=== PATIENT | male | born 1995 | race Caucasian/White ===

== ENCOUNTER 2016-05-08 13:09 | Emergency (ER) | payer BC ==
[~2016-05-08] VITALS: Ht 185.4 cm; Wt 82.0 kg
[2016-05-08 13:16] VITALS: TEMP 36.8; Ht 185.4 cm; Wt 82.0 kg
[2016-05-08] MEDS ORDERED: SODIUM CHLORIDE 0.9% 500ML 500 ML IV STA (14:36)
[2016-05-08] MEDS ORDERED: GLUCAGON FOR INJ 1 MG VIAL IV STA (14:36)
[2016-05-08] MEDS ORDERED: NITROGLYCERIN 0.4 MG SL PER TAB CHARGE SL STA (14:36)
[2016-05-08] MEDS ORDERED: LORAZEPAM 2 MG/ML 1 ML VIAL IV STA (14:36)
--- NOTE | 2016-05-08 15:02 | DIAGNOSTIC IMAGING REPORT ---
CHEST ONE VIEW PORTABLE HISTORY: food bolus, esophagus COMPARISON: None. FINDINGS: The lungs are clear. Cardiac silhouette is normal in size. No pleural effusions. No pneumothorax. No radiopaque foreign bodies. IMPRESSION: No acute process. Electronically signed by: Emiliano Forbes M.D. 05/08/2016 3:01 PM Dictated Date/Time: 05/08/2016 3:00 PM
[2016-05-08] MEDS ORDERED: SUCRALFATE 1 GM/10 ML UDC PO STA (15:38)
[2016-05-08 15:41] VITALS: BP 138/82; PULSE 56; O2SAT 98
[2016-05-08] MEDS ORDERED: CRFL PO (15:42)
[2016-05-08] MEDS ORDERED: PRLSR20 PO (15:42)
--- NOTE | 2016-05-08 17:31 | EMERGENCY ROOM VISIT NOTE ---
History Report prepared by Olayinkaibshari: Dandy Bullock Under the Supervision of: Dr. Bert Samson M.D. First contact with patient: 14:26 Chief Complaint: OTHER COMPLAINT Stated Complaint: DIFFICULTY SWALLOWING History of Present Illness The patient is a 20 year old male who presents to the Emergency Room with complaints of persistent difficulty swallowing since last night. The patient was eating pasta with shrimp and broccoli last night. He swallowed more than he wanted to and also did not chew the food enough. Since then, he has not been able to swallow food whatsoever. He was not able to swallow a cracker a few hours SEED BUYER. He is able to drink water very slowly. The patient did not choke on his food. There was no trauma involved, and he did not swallow anything abnormal. He feels like there is a lump in his throat with some pain rated 4/10 in severity. The patient does not have a history of blockage or esophageal issues. He does not have a history of acid reflux. The patient denies any chronic health problems and is not on any medications. Source of History: patient Onset: last night Position: throat Symptom Intensity: 4/10 Quality: other (trouble swallowing) Timing: other (persistent) Review of Systems See HPI for pertinent positives & negatives. A total of 10 systems reviewed and were otherwise negative. Past Medical & Surgical Medical Problems: (1) No known health problems Family History No pertinent family history Social History Smoking Status: Never Smoker Occupation Status: [employer] student Current/Historical Medications Scheduled Omeprazole (Prilosec), 20 MG PO DAILY Sucralfate (Carafate), 10 ML PO TID Allergies Coded Allergies: No Known Allergies (Unverified , 05/08/16) Physical Exam Vital Signs Date Time Temp Pulse Resp B/P Pulse Ox O2 Delivery O2 Flow Rate FiO2 05/08/16 15:41 56 20 138/82 98 Room Air 05/08/16 15:13 83 05/08/16 14:27 51 16 138/77 100 Room Air 05/08/16 13:16 36.8 55 18 142/70 95 Room Air Physical Exam GENERAL: Patient is in no acute distress. HEENT: No acute trauma, normocephalic atraumatic, mucous membranes moist, no nasal congestion, no scleral icterus, no throat erythema or exudate. NECK: No stridor, no adenopathy, no meningismus, trachea is midline. LUNGS: Clear to auscultation bilaterally, no wheeze, no rhonchi, breath sounds equal. HEART: Without murmurs gallops or rubs, regular rate and rhythm. ABDOMEN: Soft, nontender, bowel sounds positive, no hernias, no peritonitis. EXTREMITIES: No cyanosis or edema, full range of motion of all the joints without pain or difficulty, no signs for acute trauma. NEUROLOGIC: Oriented x 3, no acute motor or sensory deficits, no focal weakness. SKIN: No rash, no jaundice, no diaphoresis. Medical Decision & Procedures ER Provider Diagnostic Interpretation: X-ray results as stated below per interpretation by me and the radiologist: CHEST ONE VIEW PORTABLE HISTORY: food bolus, esophagus COMPARISON: None. FINDINGS: The lungs are clear. Cardiac silhouette is normal in size. No pleural effusions. No pneumothorax. No radiopaque foreign bodies. IMPRESSION: No acute process. Electronically signed by: Emiliano Forbes M.D. 05/08/2016 3:01 PM Dictated Date/Time: 05/08/2016 3:00 PM Medications Administered Medications (Trade) Dose Ordered Sig/Stan Route Start Time Stop Time Status Last Admin Dose Admin Glucagon 2 mg 2 mg NOW STAT IV 05/08/16 14:36 05/08/16 14:40 DC 05/08/16 15:00 2 MG Sodium Chloride (Nss 500ml) 500 ml @ 999 mls/hr Q31M STAT IV 05/08/16 14:36 05/08/16 15:06 DC 05/08/16 14:36 999 MLS/HR Lorazepam (Ativan Inj) 1 mg NOW STAT IV 05/08/16 14:36 05/08/16 14:40 DC 05/08/16 15:00 1 MG Nitroglycerin (Nitrostat Tab) 0.4 mg 1436 STAT SL 05/08/16 14:36 05/08/16 14:40 DC 05/08/16 14:36 0.4 MG Sucralfate (Carafate Susp) 1 gm NOW STAT PO 05/08/16 15:38 05/08/16 15:39 DC 05/08/16 15:57 1 GM ED Course 1431: The patient was evaluated in room A3. A complete history and physical exam was performed. 1436: Nitrostat 0.4 mg SL, Ativan 1 mg Iv, NSS 500 ml @ 999 mls/hr, Glucagon 2 mg IV. 1535: The patient is feeling a lot better. He was able to swallow water and a cracker. The patient is ready for discharge. 1538: Sucralfate 1 gm PO. Medical Decision Differential diagnosis includes esophageal irritation, esophageal tear, esophageal foreign body, esophageal stricture, food bolus. The patient presents with an esophageal foreign body sensation and is having difficulty with solid food and some difficulty with liquids. Chest x-ray was done, there is no mediastinal widening, no pneumonia or pneumothorax, no mediastinal air. The patient received IV saline, IV glucagon, IV Ativan and sublingual nitroglycerin. After about 30 minutes he felt improved and was able to drink water and eat a cracker without difficulty. The patient was given a drink of oral Carafate. He is being discharged. He may have had something partially obstructing his esophagus, he feels better now since treatment, I do think he can be discharged home. He will be using Prilosec and Carafate. He can return to this ER for persistent difficulty swallowing. A GI follow-up was suggested. Impression Primary Impression: Difficulty swallowing Scribe Attestation The scribe's documentation has been prepared under my direction and personally reviewed by me in its entirety. I confirm that the note above accurately reflects all work, treatment, procedures, and medical decision making performed by me. Departure Information Dispostion Home / Self-Care Prescriptions Omeprazole (PRILOSEC) 20 Mg Capcr 20 MG PO DAILY, #30 CAP Prov: Bert Samson M.D. 05/08/16 Sucralfate (CARAFATE) 1 Gm/10 Ml Lynette 10 ML PO TID for 7 Days, #210 ML 1 Refill Prov: Bert Samson M.D. 05/08/16 Referrals No Doctor, Assigned (PCP) Forms HOME CARE DOCUMENTATION FORM, IMPORTANT VISIT INFORMATION, WORK / SCHOOL INSTRUCTIONS Patient Instructions My [facility] Additional Instructions carafate 3x per day for 1 week prilosec daily for 1 month lots of liquid with meals and soft foods for next few days smaller swallows of food for a few days talk with [facility] for a GI referral as discussed return if worsening
== END 2016-05-08 15:52 | disposition home or self-care (01) ==
LOC: C.EDB 13:12 → C.EDA 15:52
DX: R13.10 Dysphagia, unspecified (principal)

== ENCOUNTER 2016-05-09 14:06 | Emergency (ER) | payer BC ==
[~2016-05-09] VITALS: Ht 185.4 cm; Wt 81.2 kg
[~2016-05-09 14:06] MED LIST: CRFL PO; PRLSR20 PO
[2016-05-09 14:22] VITALS: Ht 185.4 cm; Wt 81.2 kg
[2016-05-09] MEDS ORDERED: SODIUM CHLORIDE 0.9% 1000ML 1,000 ML IV STA (15:20)
--- NOTE | 2016-05-09 15:27 | EMERGENCY ROOM VISIT NOTE ---
History Report prepared by Olayinkaibshari: Dandy Bullock Under the Supervision of: Dr. Rick Gomez D.O. First contact with patient: 15:05 Chief Complaint: FOOD BOLUS Stated Complaint: DIFFICULTY SWALLOWING,CANT SWALLOW MEDS/FOOD/WATER Nursing Triage Summary: pt states this am could not swallow meds History of Present Illness The patient is a 20 year old male who presents to the Emergency Room with complaints of persistent difficult swallowing for the past two days. The patient was eating pasta with shrimp and broccoli two nights ago. He swallowed more than he wanted to without completely chewing his food, causing the difficulty swallowing. The patient was in the ED yesterday and given some IV medications, which did help. He was able to drink coffee this morning, but afterwards became unable to swallow oatmeal. The patient must drink water very slowly or else it comes back up. The patient also complains of abdominal pain. The patient has had trouble swallowing before, and states that this usually happens to him several times a year. The patient denies any medical problems. Source of History: patient Onset: two days Position: throat Quality: other (difficulty swallowing) Timing: other (persistent) Associated Symptoms: + abdominal pain Review of Systems See HPI for pertinent positives & negatives. A total of 10 systems reviewed and were otherwise negative. Past Medical & Surgical Medical Problems: (1) No known health problems Family History No pertinent family history Social History Smoking Status: Never Smoker Occupation Status: [employer] student Current/Historical Medications Scheduled Sucralfate (Carafate), 10 ML PO TID Allergies Coded Allergies: No Known Allergies (Unverified , 05/09/16) Physical Exam Vital Signs Date Time Temp Pulse Resp B/P Pulse Ox O2 Delivery O2 Flow Rate FiO2 05/09/16 19:19 55 20 125/75 100 Room Air 05/09/16 19:00 65 20 144/77 100 Room Air 05/09/16 18:45 66 20 130/75 100 Room Air 05/09/16 18:29 36.8 59 20 127/74 100 Room Air 05/09/16 18:25 36.8 55 20 135/79 98 Room Air 05/09/16 18:15 78 20 136/78 99 Room Air 05/09/16 18:05 75 20 129/65 100 Room Air 05/09/16 17:55 73 20 135/69 100 Mask 10 05/09/16 17:45 36.8 84 20 140/70 100 Mask 10 05/09/16 16:10 58 17 133/70 98 Room Air 05/09/16 15:04 100 05/09/16 14:22 36.7 96 18 147/83 96 Room Air Physical Exam GENERAL: Patient is awake, alert, and in no acute distress. Patient is resting comfortably and showing no signs of anxiety EYES: The conjunctivae are clear. The pupils are round and reactive. EARS, NOSE, MOUTH AND THROAT: The nose is without any evidence of any deformity. Mucous membranes are moist tongue is midline NECK: The neck is nontender and supple. RESPIRATORY: Normal respiratory effort is noted there is no evidence of wheezing rhonchi or rales CARDIOVASCULAR: Regular rate and rhythm noted there no murmurs rubs or gallops normal S1 normal S2 GASTROINTESTINAL: The abdomen is soft. Bowel sounds are present in all quadrants. Abdomen is nontender MUSCULOSKELETAL/EXTREMITIES: There is no evidence of gross deformity full range of motion is noted in the hips and shoulders SKIN: There is no obvious evidence of any rash. There are no petechiae, pallor or cyanosis noted. NEUROLOGIC: Patient is awake alert and oriented x3 strength is symmetric patellar reflexes are 2+ bilaterally Medical Decision & Procedures ER Provider Diagnostic Interpretation: X-ray results as stated below per interpretation by me and the radiologist. CHEST ONE VIEW PORTABLE CLINICAL HISTORY: ABDOMINAL PAIN/GI nausea COMPARISON STUDY: 05/08/2016 FINDINGS: The bones soft tissues and hemidiaphragms are normal. The cardiomediastinal silhouette is normal. The lungs are clear. The pulmonary vasculature is normal. IMPRESSION: Negative chest. No change in the prior study. Electronically signed by: Jimmy Kelley M.D. 05/09/2016 3:42 PM Dictated Date/Time: 05/09/2016 3:41 PM Laboratory Results 05/09/16 15:35 Red Blood Count 5.20, Mean Corpuscular Volume 88.8, Mean Corpuscular Hemoglobin 31.5, Mean Corpuscular Hemoglobin Concent 35.5, Mean Platelet Volume 10.4, Neutrophils (%) (Auto) 62.0, Lymphocytes (%) (Auto) 26.3, Monocytes (%) (Auto) 7.4, Eosinophils (%) (Auto) 3.4, Basophils (%) (Auto) 0.7, Neutrophils # (Auto) 3.52, Lymphocytes # (Auto) 1.49, Monocytes # (Auto) 0.42, Eosinophils # (Auto) 0.19, Basophils # (Auto) 0.04 05/09/16 15:35 Test 05/09/16 15:35 05/09/16 16:04 White Blood Count 5.67 K/uL (4.8-10.8) Red Blood Count 5.20 M/uL (4.7-6.1) Hemoglobin 16.4 g/dL (14.0-18.0) Hematocrit 46.2 % (42-52) Mean Corpuscular Volume 88.8 fL (80-100) Mean Corpuscular Hemoglobin 31.5 pg (25-34) Mean Corpuscular Hemoglobin Concent 35.5 g/dl (32-36) Platelet Count 232 K/uL (130-400) Mean Platelet Volume 10.4 fL (7.4-10.4) Neutrophils (%) (Auto) 62.0 % Lymphocytes (%) (Auto) 26.3 % Monocytes (%) (Auto) 7.4 % Eosinophils (%) (Auto) 3.4 % Basophils (%) (Auto) 0.7 % Neutrophils # (Auto) 3.52 K/uL (1.4-6.5) Lymphocytes # (Auto) 1.49 K/uL (1.2-3.4) Monocytes # (Auto) 0.42 K/uL (0.11-0.59) Eosinophils # (Auto) 0.19 K/uL (0-0.5) Basophils # (Auto) 0.04 K/uL (0-0.2) RDW Standard Deviation 39.7 fL (36.4-46.3) RDW Coefficient of Variation 12.4 % (11.5-14.5) Immature Granulocyte % (Auto) 0.2 % Immature Granulocyte # (Auto) 0.01 K/uL (0.00-0.02) Anion Gap 9.0 mmol/L (3-11) Est Creatinine Clear Calc Drug Dose 120.0 ml/min Estimated GFR () 110.6 Estimated GFR (Non- 95.5 BUN/Creatinine Ratio 11.9 (10-20) Calcium Level 9.5 mg/dl (8.5-10.1) Total Bilirubin 0.9 mg/dl (0.2-1) Direct Bilirubin 0.2 mg/dl (0-0.2) Aspartate Amino Transf (AST/SGOT) 19 U/L (15-37) Alanine Aminotransferase (ALT/SGPT) 33 U/L (12-78) Alkaline Phosphatase 107 U/L (45-117) Total Protein 8.2 gm/dl (6.4-8.2) Albumin 4.9 gm/dl (3.4-5.0) Lipase 73 U/L (73-393) Urine Color YELLOW Urine Appearance CLEAR (CLEAR) Urine pH 7.0 (4.5-7.5) Urine Specific [place] 1.006 (1.000-1.030) Urine Protein NEG (NEG) Urine Glucose (UA) NEG (NEG) Urine Ketones NEG (NEG) Urine Occult Blood NEG (NEG) Urine Nitrite NEG (NEG) Urine Bilirubin NEG (NEG) Urine Urobilinogen NEG (NEG) Urine Leukocyte Esterase NEG (NEG) Laboratory results per my review. Medications Administered Medications (Trade) Dose Ordered Sig/Stan Route Start Time Stop Time Status Last Admin Dose Admin Sodium Chloride (Nss 1000ml) 1,000 ml @ 999 mls/hr Q1H1M STAT IV 05/09/16 15:20 05/09/16 16:20 DC 05/09/16 16:07 999 MLS/HR ED Course 1520: The patient was evaluated in room A2. A complete history and physical examination were performed. 1520: NSS 1000 ml @ 999 mls/hr. 1546: Spoke with Dr. Sexton, Financial Planning Assistant. The patient will be evaluated. 1600: Updated the patient. He is expecting Dr. Sexton. Medical Decision Etiologies such as cardiac ischemia, aortic dissection, pulmonary embolism, pneumonia, pneumothorax, musculoskeletal, infections, pericarditis, myocarditis , esophageal rupture, gastrointestinal, as well as others were entertained. Nursing notes reviewed. Patient's previous electronic medical records reviewed. The patient is a 20-year-old male who presented to the emergency department with esophageal foreign body symptoms. The patient had a meal which included shrimp as well as broccoli 2 nights ago. He has had worsening foreign body sensation ever since that time. He was seen in our facility last evening for similar problems. At that time he was treated medically and resolution of symptoms. He returns this evening with worsening symptoms. The patient does have a history and physical exam consistent with esophageal foreign body. He was treated with IV fluids in emergency department. Discussed his case with the on-call antique clock repairer. They've agreed to evaluate the patient in the emergency department for further management and disposition. The patient was tolerating his secretions well and I feel this most likely represents a partial obstruction with a food bolus. Consults Time Called: 1539 Consulting Physician: Dr. Sexton, Financial Planning Assistant Returned Call: [phone]: Spoke with Dr. Sexton, Financial Planning Assistant. The patient will be evaluated. Impression Primary Impression: Esophageal foreign body Additional Impression: Difficulty swallowing Scribe Attestation The scribe's documentation has been prepared under my direction and personally reviewed by me in its entirety. I confirm that the note above accurately reflects all work, treatment, procedures, and medical decision making performed by me. Departure Information Dispostion Other (Being Evaluated By Gastroenterology) Referrals [facility] (PCP) Patient Instructions My [facility] Problem Qualifiers
--- NOTE | 2016-05-09 15:43 | DIAGNOSTIC IMAGING REPORT ---
CHEST ONE VIEW PORTABLE CLINICAL HISTORY: ABDOMINAL PAIN/GI nausea COMPARISON STUDY: 05/08/2016 FINDINGS: The bones soft tissues and hemidiaphragms are normal. The cardiomediastinal silhouette is normal. The lungs are clear. The pulmonary vasculature is normal. IMPRESSION: Negative chest. No change in the prior study. Electronically signed by: Jimmy Kelley M.D. 05/09/2016 3:42 PM Dictated Date/Time: 05/09/2016 3:41 PM
[2016-05-09 15:49] LABS: BASO % 0.7 %; BASO ABS # 0.04 K/uL (0-0.2); COMPLETE YES; EOS % 3.4 %; HEMATOCRIT 46.2 % (42-52); IG% 0.2 %; LYMPH % 26.3 %; LYMPH ABS # 1.49 K/uL (1.2-3.4); MEAN CELL VOLUME 88.8 fL (80-100); MEAN CORPUSCULAR HEMOGLOBIN 31.5 pg (25-34); MEAN CORPUSCULAR HGB CONC 35.5 g/dl (32-36); MEAN PLATELET VOLUME 10.4 fL (7.4-10.4); MONO % 7.4 %; PLATELET COUNT 232 K/uL (130-400); WHITE BLOOD COUNT 5.67 K/uL (4.8-10.8)
[2016-05-09 16:10] VITALS: O2SAT 98
[2016-05-09 16:17] LABS: BUN/CREATININE RATIO 11.9 (10-20); CALCIUM 9.5 mg/dl (8.5-10.1); CREATININE 1.1 mg/dl (0.60-1.40); POTASSIUM 3.8 mmol/L (3.5-5.1)
[2016-05-09 16:45] LABS: URINE APPEARANCE CLEAR (CLEAR); URINE BILIRUBIN NEG (NEG); URINE COLOR YELLOW; URINE NITRITE NEG (NEG); URINE SPECIFIC GRAVITY 1.006 (1.000-1.030); UROBILINOGEN NEG (NEG)
[2016-05-09 16:46] LABS: MANUAL MICROSCOPIC REQUIRED? NO; REVIEW REQ? NO
--- NOTE | 2016-05-09 16:53 | Medical Consult ---
Consultation Date of Consultation: May 09, 2016. Attending Physician: Dr. woo Sexton Reason for Consultation: food impaction History of Present Illness The patient is a 20 year old male presenting for a suspected food impaction. He notes during dinner yesterday some food became impacted, it appeared to pass during his ER evaluation and he was therefore discharged. This am he noted some persistent chest fullness and is unable to swallow solids, the patient is able to swallow some liquids. He has noted similar events over the past year but has not needed medical care as the boluses typically pass spontaneously. The patient does not recall a history of GERD but does note use PRN Peptobismol. Past Medical/Surgical History Medical Problems: (1) Difficulty swallowing Status: Acute Family History No pertinent family history Social History Smoking Status: Never Smoker Alcohol Use: occasionally Drug Use: none Marital Status: single Housing Status: other (College student) Occupation Status: [employer] student Allergies Coded Allergies: No Known Allergies (Unverified , 05/09/16) Home Medications Carafate 1 gm Tid Current Inpatient Medications Reported Home Medications Medications Dose Route/Sig Max Daily Dose Days Date Category Carafate (Sucralfate) 1 Gm/10 Ml Lynette 10 Ml PO TID 7 05/08/16 Rx Review of Systems Constitutional: No chills, No fatigue, No weight loss Eyes: No diplopia, No eye pain, No redness ENT: + trouble swallowing, No sore throat Respiratory: + wheezing, No shortness of breath, No sputum Cardiovascular: No PND, No chest pain, No edema, No palpitations Abdomen: No constipation, No diarrhea, No nausea, No vomiting Musculoskeletal: No joint pain, No swelling Genitourinary - Male: No dysuria, No urinary hesitancy Neurologic: No balance problems, No memory loss, No weakness Psychiatric: No depression symptoms, No substance abuse Endocrine: No fatigue Hematologic / Lymphatic: No abnormal bleeding/bruising, No swollen lymph nodes Integumentary: No rash Allergic / Immunologic: No environmental allergies, No food allergies Physical Exam Date Time Temp Pulse Resp B/P Pulse Ox O2 Delivery O2 Flow Rate FiO2 05/09/16 16:10 58 17 133/70 98 Room Air 05/09/16 15:04 100 05/09/16 14:22 36.7 96 18 147/83 96 Room Air General Appearance: no apparent distress Head: normocephalic Eyes: PERRL Neck: supple, no JVD Respiratory/Chest: chest non-tender, lungs clear Cardiovascular: regular rate, rhythm, no murmur Abdomen/GI: normal bowel sounds, non tender, soft Neurologic/Psych: alert, oriented x 3 Skin: no rash Laboratory Results Last 24 Hours Test 05/09/16 15:35 05/09/16 16:04 White Blood Count 5.67 K/uL Red Blood Count 5.20 M/uL Hemoglobin 16.4 g/dL Hematocrit 46.2 % Mean Corpuscular Volume 88.8 fL Mean Corpuscular Hemoglobin 31.5 pg Mean Corpuscular Hemoglobin Concent 35.5 g/dl Platelet Count 232 K/uL Mean Platelet Volume 10.4 fL Neutrophils (%) (Auto) 62.0 % Lymphocytes (%) (Auto) 26.3 % Monocytes (%) (Auto) 7.4 % Eosinophils (%) (Auto) 3.4 % Basophils (%) (Auto) 0.7 % Neutrophils # (Auto) 3.52 K/uL Lymphocytes # (Auto) 1.49 K/uL Monocytes # (Auto) 0.42 K/uL Eosinophils # (Auto) 0.19 K/uL Basophils # (Auto) 0.04 K/uL RDW Standard Deviation 39.7 fL RDW Coefficient of Variation 12.4 % Immature Granulocyte % (Auto) 0.2 % Immature Granulocyte # (Auto) 0.01 K/uL Sodium Level 142 mmol/L Potassium Level 3.8 mmol/L Chloride Level 105 mmol/L Carbon Dioxide Level 28 mmol/L Anion Gap 9.0 mmol/L Blood Urea Nitrogen 13 mg/dl Creatinine 1.10 mg/dl Est Creatinine Clear Calc Drug Dose 120.0 ml/min Estimated GFR () 110.6 Estimated GFR (Non- 95.5 BUN/Creatinine Ratio 11.9 Random Glucose 94 mg/dl Calcium Level 9.5 mg/dl Total Bilirubin 0.9 mg/dl Direct Bilirubin 0.2 mg/dl Aspartate Amino Transf (AST/SGOT) 19 U/L Alanine Aminotransferase (ALT/SGPT) 33 U/L Alkaline Phosphatase 107 U/L Total Protein 8.2 gm/dl Albumin 4.9 gm/dl Lipase 73 U/L Assessment & Plan Patient with a suspected food impaction. We plan for EGD today for disimpaction. We discussed the risks to include bleeding, infection, perforation, aspiration, inabilty to remove bolus and need for f/u procedures. Plan EGD today Omeprazole 40 mg per day
[2016-05-09] MEDS ORDERED: SUCCINYLCHOLINE 100MG/5ML SYR IV ONE (17:00)
[2016-05-09] MEDS ORDERED: PROPOFOL IV EMULSION 10 MG/ML 20 ML VIAL IV ONE (17:00)
[2016-05-09] MEDS ORDERED: FENTANYL CITRATE INJ 50 MCG/1 ML 2 ML VIAL ONE (17:04)
[2016-05-09] MEDS ORDERED: MIDAZOLAM HCL 1 MG/ML 2ML VIAL ONE (17:05)
[2016-05-09] MEDS ORDERED: DEXAMETHASONE SOD INJ 4 MG/ML VIAL ONE (17:30)
[2016-05-09] MEDS ORDERED: DiphenhydrAMINE HCL 50 MG/ML VIAL ONE (17:33)
--- NOTE | 2016-05-09 17:47 | GI REPORT ---
Procedure Date: 05/09/2016 5:15 PM Procedure: Upper GI endoscopy Indications: Foreign body in the esophagus Medicines: General Anesthesia Complications: No immediate complications. Estimated blood loss: Minimal. Estimated Blood Loss: Estimated blood loss was minimal. Procedure: Pre-Anesthesia Assessment: - Prior to the procedure, a History and Physical was performed, and patient medications, allergies and sensitivities were reviewed. The patient's tolerance of previous anesthesia was reviewed. - The risks and benefits of the procedure and the sedation options and risks were discussed with the patient. All questions were answered and informed consent was obtained. - Patient identification and proposed procedure were verified prior to the procedure by the physician, the nurse and the anesthesiologist. The procedure was verified in the procedure room. - Pre-procedure physical examination revealed no contraindications to sedation. - ASA Grade Assessment: I - A normal, healthy patient. - After reviewing the risks and benefits, the patient was deemed in satisfactory condition to undergo the procedure. - The anesthesia plan was to use general anesthesia. - Immediately prior to administration of medications, the patient was re-assessed for adequacy to receive sedatives. - The heart rate, respiratory rate, oxygen saturations, blood pressure, adequacy of pulmonary ventilation, and response to care were monitored throughout the procedure. - The physical status of the patient was re-assessed after the procedure. After obtaining informed consent, the endoscope was passed under direct vision. Throughout the procedure, the patient's blood pressure, pulse, and oxygen saturations were monitored continuously. The scope was introduced through the mouth, and advanced to the second part of duodenum. The upper GI endoscopy was accomplished without difficulty. The patient tolerated the procedure well. Findings: Food was found in the lower third of the esophagus. Removal of food was accomplished (combination of a [employer] and gentle pressure of the bolus allowing it to pass into the stomach). Estimated blood loss was minimal. Mucosal changes including feline appearance, longitudinal markings, mucosal friability and stenosis were found in the middle third of the esophagus and in the lower third of the esophagus. The entire examined stomach was normal. The examined duodenum was normal. Impression: - Food in the lower third of the esophagus. Removal was successful. - Esophageal mucosal changes suggestive of eosinophilic esophagitis. - Normal stomach. - Normal examined duodenum. Recommendation: - Discharge patient to home (ambulatory). - Full liquid diet for 3 days. The advance as tolerated (avoid meats / breads) - Use Prilosec (omeprazole) 40 mg PO daily. - Repeat the upper endoscopy in 2 weeks. Cally Sexton D.O. Cally Sexton, 05/09/2016 5:47:32 PM This report has been signed electronically. Note Initiated On: 05/09/2016 5:15 PM I attest to the content of the Intraoperative Record and orders documented therein, exceptions below
--- NOTE | 2016-05-09 17:48 | [facility] Post Operative Brief Note ---
Immediate Operative Summary Operative Date May 09, 2016. Pre-Operative Diagnosis food impaction Post-Operative Diagnosis food impaction suspect Eosinophilic Esophagitis Procedure(s) Performed Upper Endoscopy Surgeon Dr Alix Sexton Analytical Chemist Surgeon(s) None Estimated Blood Loss 3 Findings food impacted in esophagus findings suggestive of eosinophilic esopahgitis Specimens None Anesthesia General Complication(s) None Disposition Recovery Room / PACU
--- NOTE | 2016-05-09 17:51 | Discharge Instructions ---
Endoscopy Patient Instructions Date / Procedure(s) Performed May 09, 2016. EGD Allergy Information Coded Allergies: No Known Allergies (Unverified , 05/09/16) Discharge Date / Findings May 09, 2016. food impaction of the esophagus suspect eosinophilic esophagitis Medication Instructions Omeprazole 40 mg per day Provider Instructions Activity Restrictions - No exercising or heavy lifting for 24 hours. - Do not drink alcohol the day of the procedure. - Do not drive a car or operate machinery until the day after the procedure. - Do not make any important decisions or sign important papers in 24 hours after the procedure. Following Day: - Return to full activity which may include returning to work/school. Diet Liquid diet for 3 days Then advance as tolerated (avoid bread / meats / hard or fibrous foods) Treatment For Common After Affects For mild abdominal pain, bloating, or excessive gas: - Rest - Eat lightly - Lie on right side Follow-Up Information Full liquid diet for 3 days. The advance as tolerated (avoid meats / breads) Use Prilosec (omeprazole) 40 mg PO daily. Repeat the upper endoscopy in 2 to 4 weeks. Anesthesia Information What You Should Know You have had a procedure that required some medicine to reduce anxiety and discomfort. This treatment is called moderate sedation. After receiving the treatment, you may be sleepy, but you will be able to breathe on your own. The effects of the treatment may last for several hours. Follow these instructions along with Activity/Diet recommendations noted above: * Do NOT do anything where dizziness or clumsiness would be dangerous. * Rest quietly at home today, then you can be up and about tomorrow. * Have a responsible person stay with you the rest of today. * You may have had an I.V. today. If so, you may take the dressing off later today. Recommendations Call your doctor if: * Trouble breathing * Continuous vomiting for more than 24 hours * Temperature above 101 degrees * Severe abdominal pain or bloating * Pain not relieved by pain medicine ordered * There is increased drainage or redness from any incision * A large amount of rectal bleeding greater than 2-3 tablespoons. (If you had a polyp/s removed or have hemorrhoids, a small amount of blood - from the rectum is to be expected.) * You have any unanswered questions or concerns. IN THE EVENT OF A SERIOUS EMERGENCY, GO TO THE NEAREST EMERGENCY ROOM Your discharge instructions were prepared by provider Cally Sexton. Patient Instructions Signature Page [place] Patient (or Guardian) Signature/Date: I have read and understand the instructions given to me by my caregivers. Caregiver/RN/Doctor Signature/Date: The above-named patient and/or guardian has received patient instructions on this date. + Original Patient Signature Page (only) stays with chart. Please make copy for patient.
[2016-05-09] MEDS ORDERED: ATROPINE SULFATE 0.1 MG/ML 5ML SYR IV PRN (18:00)
[2016-05-09] MEDS ORDERED: EpHEDrine SULFATE INJ 50 MG/ML AMP IV PRN (18:00)
--- NOTE | 2016-05-09 18:19 | Anesthesiology Progress Note ---
Anesthesia Post Op Note Date & Time May 09, 2016 at 18:18 Vital Signs Pain Intensity: 5.0 Vital Signs Past 12 Hours Date Time Temp Pulse Resp B/P Pulse Ox O2 Delivery O2 Flow Rate FiO2 05/09/16 18:15 78 20 136/78 99 Room Air 05/09/16 18:05 75 20 129/65 100 Room Air 05/09/16 17:55 73 20 135/69 100 Mask 10 05/09/16 17:45 36.8 84 20 140/70 100 Mask 10 05/09/16 16:10 58 17 133/70 98 Room Air 05/09/16 15:04 100 05/09/16 14:22 36.7 96 18 147/83 96 Room Air Notes Mental Status: alert / awake / arousable, participated in evaluation Pt Amnestic to Procedure: Yes Nausea / Vomiting: adequately controlled Pain: adequately controlled Airway Patency, RR, SpO2: stable & adequate BP & HR: stable & adequate Hydration State: stable & adequate Anesthetic Complications: no major complications apparent
[2016-05-09 18:29] VITALS: BP 127/74; PULSE 59; TEMP 36.8; O2SAT 100
[2016-05-09] MEDS ORDERED: ONDANSETRON INJ 2 MG/ML 2 ML VIAL IV PRN (18:30)
[2016-05-09 18:45] VITALS: BP 130/75; PULSE 66; O2SAT 100
[2016-05-09 19:00] VITALS: BP 144/77; PULSE 65; O2SAT 100
[2016-05-09 19:19] VITALS: BP 125/75; PULSE 55; O2SAT 100
== END 2016-05-09 17:06 | disposition home or self-care (01) ==
LOC: C.EDB 14:08 → C.EDA 17:06
DX: T18.128A Food in esophagus causing other injury, initial encounter (principal); X58.XXXA Exposure to other specified factors, initial encounter